=== PATIENT | male | born 1955 | race Hispanic/Latino ===

== ENCOUNTER 2019-05-14 22:19 | Emergency (ER) | payer MEDICARE, OTHER ==
[~2019-05-14] VITALS: Ht 167.6 cm; Wt 63.0 kg
[2019-05-14] MEDS: HYDROCODONE/APAP 10MG-325MG TAB PO ONE (22:51)
[2019-05-14] MEDS ORDERED: HYDROCODONE/APAP 10MG-325MG TAB ONE (22:55)
== END 2019-05-14 23:29 | disposition home or self-care (01) ==
LOC: ER 22:19
DX: G89.29 Other chronic pain (principal); C34.90 Malignant neoplasm of unspecified part of unspecified bronchus or lung
CPT/HCPCS: 99283